=== PATIENT | female | born 1965 | race Caucasian/White ===

== ENCOUNTER 2016-06-07 13:02 | Day surgery (SDC) | payer BC ==
[~2016-06-07] VITALS: Ht 157.5 cm; Wt 50.8 kg
[2016-06-07 13:40] LABS: EOSINOPHIL (%) 0.6 % (0-5); HEMATOCRIT 44.2 % (36.0-46.0); IMMATURE GRANULOCYTE (%) 0.4 % (0.0-0.7); INSTRUMENT ABS NEUTROPHIL CT 3.7 K/uL; LYMPHOCYTE COUNT 1.2 K/uL (1.0-2.8); MCH 29.6 PG (29.0-34.0); MCHC 33.5 G/DL (30.0-36.0); MCV 88.4 FL (83-99); MEAN PLAT.VOLUME 9.5 uM^3 (9.5-12.4); MONOCYTE (%) 6.2 % (3-12); MONOCYTE COUNT 0.3 K/uL (0-0.8); NEUTROPHIL (%) 69.7 % (45-76); NEUTROPHIL COUNT 3.7 K/uL (1.8-6.4); PLATELET COUNT 254 K/uL (156-360); RBC DIS.WIDTH-CV 12.5 % (11.8-14.6); RBC DIS.WIDTH-SD 40.4 % (39-53); WHITE BLOOD COUNT 5.3 K/uL (4.1-10.2)
[2016-06-07 14:08] VITALS: BP 130/65
[2016-06-07] MEDS ORDERED: HYDROCODON-ACE1 EAC7 PO (15:09)
[2016-06-07] MEDS ORDERED: IBUPROFEN800 MG PO (15:09)
[2016-06-07 16:05] VITALS: BP 129/75
[2016-06-07 16:45] VITALS: BP 135/85
== END 2016-06-07 16:55 | disposition home or self-care (01) ==
LOC: SDC 13:02
PROVIDERS: Obstetrics & Gynecology
PROC: 0UDB8ZZ Extraction of Endometrium, Via Natural or Artificial Opening Endoscopic (ICD-10-PCS; principal; 2016-06-07)
PROC: 0U5B8ZZ Destruction of Endometrium, Via Natural or Artificial Opening Endoscopic (ICD-10-PCS; principal; 2016-06-07)
DX: N92.6 Irregular menstruation, unspecified (principal); Z82.49 Family history of ischemic heart disease and other diseases of the circulatory system
CPT/HCPCS: 84702; 85025; 86850; 86900; 86901; 88305; J0131; J0690; J1100; J1885; J2250; J2405; J2765; J3010